=== PATIENT | male | born 1955 | race Caucasian/White ===

== ENCOUNTER 2016-10-19 13:55 | Emergency (ER) | payer OTHER ==
[~2016-10-19] VITALS: Ht 172.7 cm; Wt 76.1 kg
[~2016-10-19 13:55] MED LIST: ASPI81TA21 PO; CLTP PO; EPP3/2 IM; FISHOIL PO; FLUC100T PO; MULTTAB PO; SIMV20TA2 PO
[2016-10-19 14:07] VITALS: TEMP 36.8; Ht 172.7 cm; Wt 76.1 kg
--- NOTE | 2016-10-19 15:10 | DIAGNOSTIC IMAGING REPORT ---
LEFT FOOT MIN 3 VIEWS ROUTINE CLINICAL HISTORY: left foot pain pain COMPARISON: None. DISCUSSION: The bones and joint spaces appear intact. There is no evidence of fracture, dislocation or bony disease. There is no evidence for soft tissue swelling. IMPRESSION: Negative study. Electronically signed by: Les Zuluaga M.D. 10/19/2016 3:08 PM Dictated Date/Time: 10/19/2016 3:08 PM
[2016-10-19] MEDS ORDERED: BUPRTAB51 PO (15:19)
[2016-10-19] MEDS ORDERED: OMEGCAP2 PO (15:19)
[2016-10-19] MEDS ORDERED: BUPR-79 PO (15:19)
[2016-10-19] MEDS ORDERED: GABA-112 PO (15:19)
--- NOTE | 2016-10-19 15:50 | EMERGENCY ROOM VISIT NOTE ---
ED Visit Note First contact with patient: 14:10 CHIEF COMPLAINT: Foot pain HISTORY OF PRESENT ILLNESS: This 61-year-old male patient presents to the emergency department ambulatory complaining of swelling and pain in the left foot at rest and worse with weight bearing. The patient dropped a heavy piece of steel on his foot just prior to arrival. The patient rates the pain as sharp and 6/10. The patient has no relief of the pain. The patient is able to walk. No numbness or weakness. No ankle pain. There are no lacerations of the foot. The patient is able to move all of their toes and their ankle without pain. 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 He denies any numbness or tingling. He did take Advil and states that has helped. REVIEW OF SYSTEMS: GENERAL: A 10 system review of systems was completed with positives and pertinent negatives in the HPI. ALLERGIES: No known drug allergies MEDICATIONS: See nursing notes PMH: Hyperlipidemia SOCIAL HISTORY: The patient lives locally. He is a smoker. PHYSICAL EXAM: Vital Signs: Reviewed Nurse's notes, vital signs stable. GENERAL : This is a 61-year-old male, in no acute distress, but appears in pain, well- developed, well-nourished. MUSCULOSKELETAL: There is no visual deformity of the left foot. There is no erythema but mild ecchymosis. There is no warmth. There is tenderness and swelling over the dorsal aspect of the left foot. The range of motion of the left foot is minimally limited secondary to pain. There is no tenderness over the plantar fascia. Dorsi flexion 5/5 and Plantar flexion 5/5. The skin is intact and there are no lacerations or puncture wounds. Dorsalis pedis pulse 2+. Capillary refill less than 2 seconds. EMERGENCY DEPARTMENT COURSE: I examined the patient. An X-ray of the left foot was reviewed by myself and radiology and reveals no fracture or dislocation. The patient was placed in a post-op shoe and declined crutches. The patient sustained a crush injury to left foot. He does not have any numbness, weakness , coolness to suggest compartment syndrome. The patient was advised of the possibility of soft tissue injury. He should follow-up with orthopedics for further evaluation and management. He did not have any identifiable enlargement of the reported soft tissue tumor in his foot. There is no abnormality on x-ray. He should return with any worsening symptoms. LEFT FOOT MIN 3 VIEWS ROUTINE CLINICAL HISTORY: left foot pain pain COMPARISON: None. DISCUSSION: The bones and joint spaces appear intact. There is no evidence of fracture, dislocation or bony disease. There is no evidence for soft tissue swelling. IMPRESSION: Negative study. Problem List Medical Problems: (1) Hornet/Wasp/Bee Sting Status: Resolved (2) Tobacco Use Disorder Status: Chronic Current/Historical Medications Scheduled Aspirin Enteric Coated (Ecotrin Or Generic), 81 MG PO DAILY Bupropion (Wellbutrin Sr), 150 MG PO DAILY Epinephrine (Epipen), 0.3 MG IM UD Gabapentin (Neurontin), 100 MG PO TID Multivitamins/Minerals (Mvi With Minerals), 1 TABLET PO DAILY [place]-3 Fatty Acids (Fish Oil), 1 CAP PO DAILY Simvastatin (Zocor), 20 MG PO DAILY Miscellaneous Medications Bupropion (Wellbutrin-Xl), 300 MG PO Allergies Coded Allergies: BEE STING (Verified Allergy, Severe, SHORTNESS OF BREATH, 10/19/16) HAS EPIPEN FOR REACTIONS Vital Signs Date Time Temp Pulse Resp B/P Pulse Ox O2 Delivery O2 Flow Rate FiO2 10/19/16 16:45 81 18 126/82 94 Room Air 10/19/16 14:07 36.8 91 18 127/81 96 Room Air Departure Information Impression Primary Impression: Contusion of foot Dispostion Home / Self-Care Condition GOOD Referrals Nellie Zhang M.D. (PCP) Jeffery Huber M.D. Patient Instructions ED Crush Injury, Foot/Toe, No Fracture, My [facility] Additional Instructions Ibuprofen 600 mg every 6-8 hours for pain Wear the postop shoe when up and about Contact orthopedics tomorrow to schedule a follow-up appointment for further evaluation and management Return with any severe, worsening pain, numbness, tingling, coolness, weakness
[2016-10-19 16:45] VITALS: BP 126/82; PULSE 81; O2SAT 94
[2016-12-16] MEDS ORDERED: CPR500 PO (10:24)
[2016-12-16] MEDS ORDERED: LCTX PO (10:24)
== END 2016-10-19 16:46 | disposition home or self-care (01) ==
LOC: C.EDB 13:57 → C.EDD 16:46
DX: S90.32XA Contusion of left foot, initial encounter (principal); M79.672 Pain in left foot; W20.8XXA Other cause of strike by thrown, projected or falling object, initial encounter; Y92.89 Other specified places as the place of occurrence of the external cause; F17.210 Nicotine dependence, cigarettes, uncomplicated

== ENCOUNTER 2016-11-22 16:20 | Emergency (ER) | payer OTHER ==
[~2016-11-22] VITALS: Ht 172.7 cm; Wt 77.5 kg
[~2016-11-22 16:20] MED LIST changes: +BUPR-79 PO; +BUPRTAB51 PO; -CLTP PO; -FISHOIL PO; -FLUC100T PO; +GABA-112 PO; +OMEGCAP2 PO
[2016-11-22 16:24] VITALS: TEMP 36.9; Ht 172.7 cm; Wt 77.5 kg
[2016-11-22 16:56] LABS: BASO % 0.2 %; BASO ABS # 0.02 K/uL (0-0.2); COMPLETE YES; EOS % 7.1 %; HEMATOCRIT 44.6 % (42-52); IG% 0.1 %; LYMPH % 27.8 %; LYMPH ABS # 2.83 K/uL (1.2-3.4); MEAN CELL VOLUME 97.2 fL (80-100); MEAN CORPUSCULAR HEMOGLOBIN 32.7 pg (25-34); MEAN CORPUSCULAR HGB CONC 33.6 g/dl (32-36); MEAN PLATELET VOLUME 10.4 fL (7.4-10.4); MONO % 4.5 %; NEUT % 60.3 %; PLATELET COUNT 198 K/uL (130-400); RED BLOOD COUNT 4.59 M/uL (4.7-6.1); WHITE BLOOD COUNT 10.18 K/uL (4.8-10.8)
[2016-11-22 16:57] LABS: URINE APPEARANCE CLEAR (CLEAR); URINE BILIRUBIN NEG (NEG); URINE COLOR YELLOW; URINE NITRITE NEG (NEG); URINE SPECIFIC GRAVITY 1.025 (1.000-1.030); UROBILINOGEN NEG (NEG); ZZUR CULT IF INDIC CLEAN CATCH NO
[2016-11-22] MEDS ORDERED: KETOROLAC TROMETHAMINE 30 MG/ML VIAL IV STA (17:06)
[2016-11-22 17:07] LABS: MANUAL MICROSCOPIC REQUIRED? NO; REVIEW REQ? NO
[2016-11-22 17:13] LABS: BUN/CREATININE RATIO 16.6 (10-20); CALCIUM 8.6 mg/dl (8.5-10.1); CREATININE 1.2 mg/dl (0.60-1.40)
[2016-11-22 17:16] LABS: ALB/GLOB RATIO 1.3 (0.9-2)
[2016-11-22] MEDS ORDERED: OMEP20CA9 PO (18:16)
[2016-11-22] MEDS ORDERED: ZCR40 PO (18:16)
--- NOTE | 2016-11-22 18:17 | DIAGNOSTIC IMAGING REPORT ---
CT SCAN OF THE ABDOMEN AND PELVIS WITHOUT CONTRAST CLINICAL HISTORY: Right-sided abdominal pain COMPARISON STUDY: No previous studies for comparison. TECHNIQUE: CT scan of the abdomen and pelvis was performed from the lung bases to the proximal femurs. Images are reviewed in the axial, sagittal, and coronal planes. IV contrast was not administered for this examination. CT DOSE: 788.88 mGy.cm FINDINGS: Lower chest: There are bibasal atelectatic changes. Liver: The unenhanced liver is normal in size, contour, and attenuation. There is no intrahepatic biliary ductal dilatation. Gallbladder: Unremarkable. Spleen: Normal in size and attenuation. Pancreas: Unremarkable. Adrenal glands: Unremarkable. Kidneys: No renal, ureteral, or bladder calculi are visualized. Bowel: There are no transition zones indicate bowel obstruction. The appendix appears normal. There is colonic diverticulosis. There are no acute peridiverticular inflammatory changes. Peritoneum: There is no intraperitoneal free air or abdominal ascites. Vasculature: The abdominal aorta is normal in course and caliber. Adenopathy: None. Pelvic viscera: The prostate is enlarged measuring 48 mm transversely. Skeletal structures: No destructive osseous lesions are seen. IMPRESSION: 1. No evidence of bowel obstruction. No evidence of free air 2. No renal, ureteral, or bladder calculi identified 3. Normal appendix 4. Diverticulosis. No evidence of acute diverticulitis. Electronically signed by: Sarwat Liang M.D. 11/22/2016 6:15 PM Dictated Date/Time: 11/22/2016 6:13 PM
--- NOTE | 2016-11-22 18:43 | EMERGENCY ROOM VISIT NOTE ---
History Report prepared by Marcelino: Abhishek May Under the Supervision of: Dr. Mookie Almanza D.O. First contact with patient: 16:59 Chief Complaint: ABDOMINAL PAIN Stated Complaint: SEVERE ABDOMINAL PAIN- RT SIDE Nursing Triage Summary: right sided abd pain that gets worse with movement such as couging and sneezing , no n/v/d no flank pain no urinary complaints History of Present Illness The patient is a 61 year old male who presents to the Emergency Room with complaints of waxing and waning right lower quadrant abdominal pain beginning two days prior to arrival. He currently rates his discomfort as a 3/10 in severity. The patient states his pain worsens with bending over, sneezing, and coughing. As per , the patient has been coughing recently. He denies previous abdominal surgeries but notes a history of a hernia. The patient denies constipation, bloody or black stool, and urinary symptoms. Source of History: patient Onset: two days SWITCHMAN Position: abdomen (RLQ) Symptom Intensity: 3/10 Timing: waxes/wanes Modifying Factors (Worsening): other (bending over, coughing, sneezing) Associated Symptoms: + abdominal pain, + cough, No hematochezia, No melena, No urinary symptoms Review of Systems See HPI for pertinent positives & negatives. A total of 10 systems reviewed and were otherwise negative. Past Medical & Surgical Medical Problems: (1) Brain tumor (2) Hernia (3) Hornet/Wasp/Bee Sting (4) Tobacco Use Disorder Surgical Problems: (1) S/P vasectomy Family History Cancer Diabetes mellitus Heart disease Hypertension Social History Smoking Status: Current Every Day Smoker Alcohol Use: none Drug Use: none Marital Status: Housing Status: lives with family Occupation Status: employed Current/Historical Medications Scheduled Aspirin Enteric Coated (Ecotrin Or Generic), 81 MG PO DAILY Bupropion (Wellbutrin Sr), 150 MG PO DAILY Epinephrine (Epipen), 0.3 MG IM UD Gabapentin (Neurontin), 100 MG PO TID Multivitamins/Minerals (Mvi With Minerals), 1 TABLET PO DAILY [place]-3 Fatty Acids (Fish Oil), 1 CAP PO DAILY Omeprazole (Prilosec), 20 MG PO DAILY Simvastatin (Simvastatin), 40 MG PO HS Miscellaneous Medications Bupropion (Wellbutrin-Xl), 300 MG PO Allergies Coded Allergies: BEE STING (Verified Allergy, Severe, SHORTNESS OF BREATH, 10/19/16) HAS EPIPEN FOR REACTIONS Physical Exam Vital Signs Date Time Temp Pulse Resp B/P Pulse Ox O2 Delivery O2 Flow Rate FiO2 11/22/16 18:25 79 20 144/76 96 Room Air 11/22/16 16:24 36.9 84 18 141/87 96 Room Air Physical Exam CONSTITUTIONAL/VITAL SIGNS: Reviewed / noted above. GENERAL: Non-toxic in appearance. INTEGUMENTARY: Warm, dry, and [place]. HEAD: Normocephalic. EYES: without scleral icterus or trauma. ENT/OROPHARYNX: clear and moist. LYMPHADENOPATHY/NECK: Is supple without lymphadenopathy or meningismus. RESPIRATORY: Lungs clear and equal. CARDIOVASCULAR: Regular rate and rhythm. GI/ABDOMEN: Point tenderness on the lateral abdomen in the vicinity of the tip of the 12th rib. Soft. No organomegaly or pulsatile mass. No rebound or guarding. Normal bowel sounds. EXTREMITIES: Warm and well perfused. BACK: No CVA tenderness. NEUROLOGICAL: Intact without focal deficits. PSYCHIATRIC: normal affect. MUSCULOSKELETAL: Normally developed with good muscle tone. Medical Decision & Procedures ER Provider Diagnostic Interpretation: CT results as stated below per my review and radiologist interpretation: CT SCAN OF THE ABDOMEN AND PELVIS WITHOUT CONTRAST CLINICAL HISTORY: Right-sided abdominal pain COMPARISON STUDY: No previous studies for comparison. TECHNIQUE: CT scan of the abdomen and pelvis was performed from the lung bases to the proximal femurs. Images are reviewed in the axial, sagittal, and coronal planes. IV contrast was not administered for this examination. CT DOSE: 788.88 mGy.cm FINDINGS: Lower chest: There are bibasal atelectatic changes. Liver: The unenhanced liver is normal in size, contour, and attenuation. There is no intrahepatic biliary ductal dilatation. Gallbladder: Unremarkable. Spleen: Normal in size and attenuation. Pancreas: Unremarkable. Adrenal glands: Unremarkable. Kidneys: No renal, ureteral, or bladder calculi are visualized. Bowel: There are no transition zones indicate bowel obstruction. The appendix appears normal. There is colonic diverticulosis. There are no acute peridiverticular inflammatory changes. Peritoneum: There is no intraperitoneal free air or abdominal ascites. Vasculature: The abdominal aorta is normal in course and caliber. Adenopathy: None. Pelvic viscera: The prostate is enlarged measuring 48 mm transversely. Skeletal structures: No destructive osseous lesions are seen. IMPRESSION: 1. No evidence of bowel obstruction. No evidence of free air 2. No renal, ureteral, or bladder calculi identified 3. Normal appendix 4. Diverticulosis. No evidence of acute diverticulitis. Electronically signed by: Sarwat Liang M.D. 11/22/2016 6:15 PM Laboratory Results 11/22/16 16:42 Red Blood Count 4.59, Mean Corpuscular Volume 97.2, Mean Corpuscular Hemoglobin 32.7, Mean Corpuscular Hemoglobin Concent 33.6, Mean Platelet Volume 10.4, Neutrophils (%) (Auto) 60.3, Lymphocytes (%) (Auto) 27.8, Monocytes (%) (Auto) 4.5, Eosinophils (%) (Auto) 7.1, Basophils (%) (Auto) 0.2, Neutrophils # (Auto) 6.14, Lymphocytes # (Auto) 2.83, Monocytes # (Auto) 0.46, Eosinophils # (Auto) 0.72, Basophils # (Auto) 0.02 11/22/16 16:42 Test 11/22/16 16:42 White Blood Count 10.18 K/uL (4.8-10.8) Red Blood Count 4.59 M/uL (4.7-6.1) Hemoglobin 15.0 g/dL (14.0-18.0) Hematocrit 44.6 % (42-52) Mean Corpuscular Volume 97.2 fL (80-100) Mean Corpuscular Hemoglobin 32.7 pg (25-34) Mean Corpuscular Hemoglobin Concent 33.6 g/dl (32-36) Platelet Count 198 K/uL (130-400) Mean Platelet Volume 10.4 fL (7.4-10.4) Neutrophils (%) (Auto) 60.3 % Lymphocytes (%) (Auto) 27.8 % Monocytes (%) (Auto) 4.5 % Eosinophils (%) (Auto) 7.1 % Basophils (%) (Auto) 0.2 % Neutrophils # (Auto) 6.14 K/uL (1.4-6.5) Lymphocytes # (Auto) 2.83 K/uL (1.2-3.4) Monocytes # (Auto) 0.46 K/uL (0.11-0.59) Eosinophils # (Auto) 0.72 K/uL (0-0.5) Basophils # (Auto) 0.02 K/uL (0-0.2) RDW Standard Deviation 46.3 fL (36.4-46.3) RDW Coefficient of Variation 13.1 % (11.5-14.5) Immature Granulocyte % (Auto) 0.1 % Immature Granulocyte # (Auto) 0.01 K/uL (0.00-0.02) Urine Color YELLOW Urine Appearance CLEAR (CLEAR) Urine pH 5.0 (4.5-7.5) Urine Specific [place] 1.025 (1.000-1.030) Urine Protein NEG (NEG) Urine Glucose (UA) NEG (NEG) Urine Ketones TRACE (NEG) Urine Occult Blood NEG (NEG) Urine Nitrite NEG (NEG) Urine Bilirubin NEG (NEG) Urine Urobilinogen NEG (NEG) Urine Leukocyte Esterase NEG (NEG) Anion Gap 7.0 mmol/L (3-11) Est Creatinine Clear Calc Drug Dose 60.9 ml/min Estimated GFR () 74.1 Estimated GFR (Non- 64.0 BUN/Creatinine Ratio 16.6 (10-20) Calcium Level 8.6 mg/dl (8.5-10.1) Total Bilirubin 0.3 mg/dl (0.2-1) Aspartate Amino Transf (AST/SGOT) 18 U/L (15-37) Alanine Aminotransferase (ALT/SGPT) 42 U/L (12-78) Alkaline Phosphatase 92 U/L (45-117) Total Protein 7.2 gm/dl (6.4-8.2) Albumin 4.0 gm/dl (3.4-5.0) Globulin 3.2 gm/dl (2.5-4.0) Albumin/Globulin Ratio 1.3 (0.9-2) Lipase 157 U/L (73-393) Laboratory results as stated above per my review. Medications Administered Medications (Trade) Dose Ordered Sig/Rosaura Route Start Time Stop Time Status Last Admin Dose Admin Ketorolac Tromethamine (Toradol Inj) 30 mg NOW STAT IV 11/22/16 17:06 11/22/16 17:07 DC 11/22/16 17:19 30 MG ED Course 1700: Previous medical records were reviewed. The patient was evaluated in room C7. A complete history and physical examination was performed. 1706: Ordered Toradol Inj 30 mg IV. 1844: On reevaluation, the patient is doing well. I discussed the results and findings with the patient. He verbalized agreement of the treatment plan. The patient was discharged home. Medical Decision Differential considered: pancreatitis, hepatitis, or acute cholecystitis, AAA, UTI, pyelonephritis, kidney stones, appendicitis, diverticulitis, shingles, bowel obstruction mesenteric ischemia, intussusception,hernia, testicular torsion. This is a 61-year-old male who presents to the ED with a chief complaint of right lower quadrant/flank abdominal pain he has had it for a couple of days. It seems to be more musculoskeletal, he reports. He does not recall any specific injury or doing any sort of activity that will cause musculoskeletal pain. His pain is worse with movement, sneezing and cough. On exam his pain localizes to the area just over the distal 12th rib. The patient states that at times he does not notice the pain. His vital signs are normal. CBC, complete metabolic panel and urine did not reveal any significant abnormalities. CT scan of the abdomen and pelvis without contrast did not show any abnormalities. The patient was told the results. His symptoms are felt to be muscular skeletal. He is felt to be stable for discharge. Impression Primary Impression: Right lateral abdominal pain Scribe Attestation The scribe's documentation has been prepared under my direction and personally reviewed by me in its entirety. I confirm that the note above accurately reflects all work, treatment, procedures, and medical decision making performed by me. Departure Information Dispostion Home / Self-Care Referrals Nellie Zhang M.D. (PCP) Forms HOME CARE DOCUMENTATION FORM, IMPORTANT VISIT INFORMATION Patient Instructions My [facility] Additional Instructions Symptoms appear to be musculoskeletal. Take Tylenol/Motrin as needed for pain. Anticipate improvement over the next 5-7 days. Return for significant worsening or follow-up with your family doctor for persistence of symptoms.
[2016-11-22 19:06] VITALS: BP 144/76; PULSE 88; O2SAT 99
[2016-12-16] MEDS ORDERED: LCTX PO (10:24)
[2016-12-16] MEDS ORDERED: CPR500 PO (10:24)
== END 2016-11-22 19:07 | disposition home or self-care (01) ==
LOC: C.EDB 16:21 → C.EDC 19:07
DX: R10.31 Right lower quadrant pain (principal); F17.200 Nicotine dependence, unspecified, uncomplicated; Z85.841 Personal history of malignant neoplasm of brain; Z91.030 Bee allergy status; Z79.82 Long term (current) use of aspirin; Z80.9 Family history of malignant neoplasm, unspecified; Z83.3 Family history of diabetes mellitus; Z82.49 Family history of ischemic heart disease and other diseases of the circulatory system

== ENCOUNTER 2016-12-13 08:46 | Inpatient (IN) | payer OTHER ==
[~2016-12-13] VITALS: Ht 175.3 cm; Wt 75.4 kg
[~2016-12-13 08:46] MED LIST changes: +OMEP20CA9 PO; -SIMV20TA2 PO; +ZCR40 PO
[2016-12-13] MEDS ORDERED: ACETAMINOPHEN 500 MG TAB PO ONE ×2 (09:43→09:44)
[2016-12-13 09:56] LABS: HEMATOCRIT 42.4 % (42-52); MEAN CELL VOLUME 96.6 fL (80-100); MEAN CORPUSCULAR HEMOGLOBIN 32.3 pg (25-34); MEAN CORPUSCULAR HGB CONC 33.5 g/dl (32-36); MEAN PLATELET VOLUME 10.4 fL (7.4-10.4); PLATELET COUNT 198 K/uL (130-400); RED BLOOD COUNT 4.39 M/uL (4.7-6.1); WHITE BLOOD COUNT 14.76 K/uL (4.8-10.8)
[2016-12-13] MEDS ORDERED: KETOROLAC TROMETHAMINE 30 MG/ML VIAL IV STA (09:57)
[2016-12-13] MEDS ORDERED: ONDANSETRON INJ 2 MG/ML 2 ML VIAL IV STA (09:57)
[2016-12-13] MEDS ORDERED: SODIUM CHLORIDE 0.9% 1000ML 1,000 ML IV STA ×2 (09:57→11:08)
[2016-12-13] MEDS ORDERED: SODIUM CHLORIDE 0.9% 1000ML 1,000 ML IV ONE (09:57)
--- NOTE | 2016-12-13 10:00 | EMERGENCY ROOM VISIT NOTE ---
History Report prepared by Marcelino: Martin Lala Under the Supervision of: Dr. Castro Gomez M.D. First contact with patient: 09:49 Chief Complaint: VOMITING Stated Complaint: D,V, FEVER, WEAKNESS, STOMACH/CHEST PAINS Nursing Triage Summary: pt reports 3 days of NVD with LONGORIA fever chills, and 2 days of bilat rib pain to PCP today sent in for eval and tx History of Present Illness The patient is a 61 year old male who presents to the Emergency Room with complaints of intermittent vomiting that began 3 days ago. He states that he had two episodes of vomiting so far today. He is also experiencing nausea, diarrhea, abdominal pain, chest tightness, coughing, fever, and weakness. He states that he had 9 episodes of diarrhea today. He denies any abnormal urinary symptoms, melena, or hematochezia. He denies any recent travel or eating any unusual foods. He denies any sick contacts as well. He has a past medical history of a meningioma, hyperlipidemia, arthritis, and prostatitis. Source of History: patient, spouse/significant other Onset: 3 days ago Position: other (GI) Symptom Intensity: 3 episodes Quality: other (Emesis) Timing: intermittent Associated Symptoms: + abdominal pain, + chest pain, + cough, + diarrhea, + fevers, + headache, + nausea, No hematochezia, No melena, No urinary symptoms Review of Systems See HPI for pertinent positives & negatives. A total of 10 systems reviewed and were otherwise negative. Past Medical & Surgical Medical Problems: (1) Acute colitis (2) Brain tumor (3) Hernia (4) Hornet/Wasp/Bee Sting (5) Tobacco Use Disorder Surgical Problems: (1) S/P vasectomy Old medical records were reviewed. Nurse's notes were reviewed and I agree with. Family History Cancer Diabetes mellitus Heart disease Hypertension Social History Smoking Status: Current Every Day Smoker Alcohol Use: none Drug Use: none Marital Status: Housing Status: lives with family Occupation Status: employed Current/Historical Medications Scheduled Aspirin Enteric Coated (Ecotrin Or Generic), 81 MG PO DAILY Epinephrine (Epipen), 0.3 MG IM UD Gabapentin (Neurontin), 100 MG PO TID Multivitamins/Minerals (Mvi With Minerals), 1 TABLET PO DAILY [place]-3 Fatty Acids (Fish Oil), 1 CAP PO DAILY Omeprazole (Prilosec), 20 MG PO DAILY Simvastatin (Simvastatin), 40 MG PO HS Allergies Coded Allergies: BEE STING (Verified Allergy, Severe, SHORTNESS OF BREATH, 12/13/16) HAS EPIPEN FOR REACTIONS Physical Exam Vital Signs Date Time Temp Pulse Resp B/P Pulse Ox O2 Delivery O2 Flow Rate FiO2 12/13/16 12:32 84 18 92/52 93 Room Air 12/13/16 10:43 37.6 91 18 105/53 93 Room Air 12/13/16 08:51 39.2 116 24 124/71 96 Room Air Physical Exam General: Mildly ill appearing, but non-toxic middle aged male. Well developed well nourished in no acute distress, breathing comfortably on room air. Normal speech HEENT: Normal cephalic atraumatic. Pupils are equal round and reactive to light. Sclera anicteric. Extraocular movements are intact. Oropharynx is pink with moist mucous membranes. No swelling of the mouth lips or tongue. Neck: Supple with a midline trachea. No meningeal signs or stiffness, no JVD or bruits. No Stridor. Negative Kernig's and Brudzinski's signs. Chest: Clear to auscultation bilaterally. No wheezes or rhonchi. No increased work of breathing. Heart: regular rate and rhythm. Abdomen: Soft minimally diffusely tender, nondistended without rebound guarding or rigidity. Extremities: No cyanosis clubbing or edema. No calf tenderness or assymetry Spine/Back. Non tender to palpation. No CVA tenderness Skin: Good turgor without rashes. Neurologic exam: Cranial nerves two through 12 are intact. Motor and sensation are intact and symmetrical throughout. Medical Decision & Procedures ER Provider Diagnostic Interpretation: Radiology results as stated below per my review and radiologist interpretation: CHEST ONE VIEW PORTABLE CLINICAL HISTORY: Sepsis. Chest pain. COMPARISON STUDY: No previous studies for comparison. FINDINGS: Lung volumes are normal. There is no consolidation to suggest pneumonia. There is no evidence of pulmonary edema. No pneumothorax or pleural effusions present. Cardiomediastinal silhouette is unremarkable. IMPRESSION: No acute cardiopulmonary findings. Electronically signed by: Wilfredo Gonzalez M.D. 12/13/2016 10:08 AM Dictated Date/Time: 12/13/2016 10:[address] OF THE HEAD WITHOUT CONTRAST CLINICAL HISTORY: Weakness and fever. History of meningioma. COMPARISON STUDY: No previous studies for comparison. CT DOSE: 537.48 mGy.cm TECHNIQUE: Helical axial images of the head were obtained without IV contrast. Automated exposure control was utilized for the study. FINDINGS: No acute intracranial hemorrhage, midline shift or mass effect is present. There is a 1.5 x 1.4 cm heavily calcified mass centered on the anterior falx. Ventricular system is normal. Basilar cisterns are patent. There are no extra-axial collections. Suarez-white differentiation is maintained. There are no findings to suggest acute dural sinus thrombosis or acute territorial infarct. There are no significant calvarial abnormalities. Visualized portions of the sinuses and mastoid air cells are clear. IMPRESSION: 1. No acute intracranial findings. 2. 1.5 x 1.4 cm heavily calcified mass centered on the anterior falx which suggests a falcine meningioma. Electronically signed by: Wilfredo Gonzalez M.D. 12/13/2016 10:32 AM Dictated Date/Time: 12/13/2016 10:[address] OF THE ABDOMEN AND PELVIS WITHOUT CONTRAST CLINICAL HISTORY: Right lower quadrant pain, fever and leukocytosis. COMPARISON STUDY: CT of the abdomen and pelvis November 22, 2016. TECHNIQUE: Axial images of the abdomen and pelvis were obtained without IV contrast. Images were reviewed in the axial, sagittal, and coronal planes. FINDINGS: Evaluation of the abdomen and pelvis is suboptimal on this unenhanced exam. There is suspected fatty infiltration of the liver. The spleen, adrenal glands and pancreas are unremarkable. A few subcentimeter hyperdense left renal lesions are suboptimally assessed on this unenhanced exam but favor hyperdense cyst. There is no hydronephrosis. No renal, ureteral or bladder calculi are present. There is sigmoid diverticulosis without evidence for acute diverticulitis. There is mild infiltration adjacent to the ascending colon in the transverse colon. There is mild colonic wall thickening. No pneumatosis, free air or portal venous gas is present. The prostate is mildly enlarged. There are no suspicious skeletal lesions. The appendix is normal. There is no bowel obstruction. There is no lymphadenopathy. IMPRESSION: 1. Mild pericolonic infiltration adjacent to the ascending colon and transverse colon with mild colonic wall thickening. The findings reflect colitis, likely infectious in etiology. No abscess or free air. 2. Normal appendix. Electronically signed by: Wilfredo Gonzalez M.D. 12/13/2016 11:55 AM Dictated Date/Time: 12/13/2016 11:48 AM Laboratory Results 12/13/16 09:15 Red Blood Count 4.39, Mean Corpuscular Volume 96.6, Mean Corpuscular Hemoglobin 32.3, Mean Corpuscular Hemoglobin Concent 33.5, Mean Platelet Volume 10.4, Neutrophils (%) (Auto) 87.2, Lymphocytes (%) (Auto) 6.6, Monocytes (%) (Auto) 5.8, Eosinophils (%) (Auto) 0.1, Basophils (%) (Auto) 0.1, Neutrophils # (Auto) 12.88, Lymphocytes # (Auto) 0.97, Monocytes # (Auto) 0.86, Eosinophils # (Auto) 0.01, Basophils # (Auto) 0.01 12/13/16 09:15 Test 12/13/16 09:05 12/13/16 09:15 12/13/16 09:25 Urine Color DK YELLOW Urine Appearance CLEAR (CLEAR) Urine pH 5.5 (4.5-7.5) Urine Specific [place] 1.026 (1.000-1.030) Urine Protein 1+ (NEG) Urine Glucose (UA) NEG (NEG) Urine Ketones TRACE (NEG) Urine Occult Blood TRACE (NEG) Urine Nitrite NEG (NEG) Urine Bilirubin NEG (NEG) Urine Urobilinogen NEG (NEG) Urine Leukocyte Esterase NEG (NEG) Urine WBC (Auto) 1-5 /hpf (0-5) Urine RBC (Auto) 5-10 /hpf (0-4) Urine Hyaline Casts (Auto) 10-30 /lpf (0-5) Urine Epithelial Cells (Auto) 20-30 /lpf (0-5) Urine Bacteria (Auto) NEG (NEG) Urine Pathogenic Casts /lpf (0) Urine Mucus PRESENT (NONE PRSENT) White Blood Count 14.76 K/uL (4.8-10.8) Red Blood Count 4.39 M/uL (4.7-6.1) Hemoglobin 14.2 g/dL (14.0-18.0) Hematocrit 42.4 % (42-52) Mean Corpuscular Volume 96.6 fL (80-100) Mean Corpuscular Hemoglobin 32.3 pg (25-34) Mean Corpuscular Hemoglobin Concent 33.5 g/dl (32-36) Platelet Count 198 K/uL (130-400) Mean Platelet Volume 10.4 fL (7.4-10.4) Neutrophils (%) (Auto) 87.2 % Lymphocytes (%) (Auto) 6.6 % Monocytes (%) (Auto) 5.8 % Eosinophils (%) (Auto) 0.1 % Basophils (%) (Auto) 0.1 % Neutrophils # (Auto) 12.88 K/uL (1.4-6.5) Lymphocytes # (Auto) 0.97 K/uL (1.2-3.4) Monocytes # (Auto) 0.86 K/uL (0.11-0.59) Eosinophils # (Auto) 0.01 K/uL (0-0.5) Basophils # (Auto) 0.01 K/uL (0-0.2) RDW Standard Deviation 50.0 fL (36.4-46.3) RDW Coefficient of Variation 14.0 % (11.5-14.5) Immature Granulocyte % (Auto) 0.2 % Immature Granulocyte # (Auto) 0.03 K/uL (0.00-0.02) Prothrombin Time 10.9 SECONDS (9.0-12.0) Prothromb Time International Ratio 1.0 (0.9-1.1) Activated Partial Thromboplast Time 28.1 SECONDS (21.0-31.0) Partial Thromboplastin Ratio 1.1 Anion Gap 9.0 mmol/L (3-11) Est Creatinine Clear Calc Drug Dose 63.0 ml/min Estimated GFR () 74.1 Estimated GFR (Non- 64.0 BUN/Creatinine Ratio 10.9 (10-20) Calcium Level 8.2 mg/dl (8.5-10.1) Magnesium Level 2.0 mg/dl (1.8-2.4) Total Bilirubin 0.5 mg/dl (0.2-1) Aspartate Amino Transf (AST/SGOT) 21 U/L (15-37) Alanine Aminotransferase (ALT/SGPT) 32 U/L (12-78) Alkaline Phosphatase 87 U/L (45-117) Total Creatine Kinase 87 U/L (39-308) Creatine Kinase MB < 0.5 ng/ml (0.5-3.6) Creatine Kinase MB Ratio (0-3.0) Troponin I < 0.015 ng/ml (0-0.045) Total Protein 7.1 gm/dl (6.4-8.2) Albumin 3.7 gm/dl (3.4-5.0) Globulin 3.4 gm/dl (2.5-4.0) Albumin/Globulin Ratio 1.1 (0.9-2) Bedside Lactic Acid Venous 0.70 mmol/L (0.90-1.70) Laboratory studies as stated above per my review. Medications Administered Medications (Trade) Dose Ordered Sig/Rosaura Route Start Time Stop Time Status Last Admin Dose Admin Acetaminophen 1000 mg 1,000 mg STK-MED ONCE PO 12/13/16 09:43 12/13/16 09:44 DC 12/13/16 09:43 1,000 MG Sodium Chloride 1,000 ml @ 999 mls/hr Q1H1M STAT IV 12/13/16 09:57 12/13/16 10:57 DC 12/13/16 10:04 999 MLS/HR Sodium Chloride (Nss 1000ml) 1,000 ml @ 200 mls/hr Q5H ONCE IV 12/13/16 09:57 12/13/16 14:37 DC 12/13/16 10:49 200 MLS/HR Ondansetron HCl (Zofran Inj) 4 mg NOW STAT IV 12/13/16 09:57 12/13/16 09:59 DC 12/13/16 10:04 4 MG Ketorolac Tromethamine 30 mg 30 mg NOW STAT IV 12/13/16 09:57 12/13/16 09:59 DC 12/13/16 10:04 30 MG Sodium Chloride (Nss 1000ml) 1,000 ml @ 999 mls/hr Q1H1M STAT IV 12/13/16 11:08 12/13/16 12:08 DC 12/13/16 11:16 999 MLS/HR Piperacillin Sod/ Tazobactam Sod (Zosyn Iv) 4.5 gm NOW STAT IV 12/13/16 12:41 12/13/16 12:43 DC 12/13/16 12:47 4.5 GM ECG Indication: nausea, vomiting, weakness Rate (beats per minute): 105 Rhythm: sinus tachycardia Findings: no acute ischemic change, no ectopy Comparison ECG Date: 17 Aug 2002 Change: The rate has increased. ED Course 0949: Past medical records reviewed. The patient was evaluated in room C4, and a complete history and physical examination were performed. 0943: Ordered Tylenol Tab 1000 mg PO 0944: Ordered Tylenol Tab 500 mg PO 0957: Ordered Toradol Inj 30 mg IV, Zofran Inj 4 mg IV, Sodium Chloride 1000 ml @ 200 mls/hr IV, Sodium Chloride 1000 ml @ 999 mls/hr IV 1108: Ordered Sodium Chloride 1000 ml @ 999 mls/hr IV 1114: The patient is feeling better, however is still experiencing pain. 1241: Ordered Zosyn Iv 4.5 gm IV 1243: Upon reevaluation, the patient is resting. I discussed the results and treatment plan with the patient. He verbalized agreement of the treatment plan. The patient will be evaluated by Dr. Mikel Gardner, for further management. Medical Decision Differentials include dehydration, gastroenteritis, sepsis, pneumonia, meningitis, lyme disease, cardiac disease, and electrolyte or metabolic abnormality. Medication Reconciliation: I attest that I have personally reviewed the patient' s current medication list. Blood pressure Screening: Patient was found to have normal blood pressure on screening and does not require follow-up. This patient comes in as described above. He has a fever nausea vomiting diarrhea abdominal pain and body aches. IV access was established she was initially normotensive and mildly tachycardic and he was given a couple liters of IV normal saline and felt significantly better. His abdomen remains tender however mostly in the right lower quadrant. In light of this, I did do a CAT scan of his abdomen and he has a nonspecific colitis. He has a white count elevation of 14. His lactic acid is not significantly elevated. He was given Zosyn 4.5 g IV. he has no acute electrode or metabolic abdomen was. He has nothing to suggest a UTI. I do think he needs to be admitted for IV hydration further treatment and evaluation given his high temperature and SIRS/sepis criteria. I have consulted Dr. Morin, who saw the patient in ER, and will admit him for these measures. Consults Time Called: 1240 Consulting Physician: Dr. Mikel Gardner Returned Call: 1243 They will be evaluating the patient for further management and care. Impression Primary Impression: Acute colitis Additional Impressions: Nausea, vomiting, and diarrhea Dehydration Scribe Attestation The scribe's documentation has been prepared under my direction and personally reviewed by me in its entirety. I confirm that the note above accurately reflects all work, treatment, procedures, and medical decision making performed by me. Departure Information Dispostion Being Evaluated By Hospitalist Referrals Nellie Zhang M.D. (PCP) Patient Instructions My [facility] Problem Qualifiers
[2016-12-13 10:06] LABS: BUN/CREATININE RATIO 10.9 (10-20); CALCIUM 8.2 mg/dl (8.5-10.1); CREATININE 1.2 mg/dl (0.60-1.40); POTASSIUM 3.8 mmol/L (3.5-5.1)
[2016-12-13 10:08] LABS: ALB/GLOB RATIO 1.1 (0.9-2)
--- NOTE | 2016-12-13 10:09 | DIAGNOSTIC IMAGING REPORT ---
CHEST ONE VIEW PORTABLE CLINICAL HISTORY: Sepsis. Chest pain. COMPARISON STUDY: No previous studies for comparison. FINDINGS: Lung volumes are normal. There is no consolidation to suggest pneumonia. There is no evidence of pulmonary edema. No pneumothorax or pleural effusions present. Cardiomediastinal silhouette is unremarkable. IMPRESSION: No acute cardiopulmonary findings. Electronically signed by: Wilfredo Gonzalez M.D. 12/13/2016 10:08 AM Dictated Date/Time: 12/13/2016 10:07 AM
[2016-12-13 10:17] LABS: PARTIAL THROMBOPLASTIN RATIO 1.1; PROTHROMBIN TIME (PATIENT) 10.9 SECONDS (9.0-12.0)
[2016-12-13 10:29] LABS: URINE APPEARANCE CLEAR (CLEAR); URINE COLOR DK YELLOW; URINE EPITHELIAL CELL AUTO 20-30 /lpf (0-5); URINE NITRITE NEG (NEG); URINE PH 5.5 (4.5-7.5); URINE SPECIFIC GRAVITY 1.026 (1.000-1.030); UROBILINOGEN NEG (NEG); ZZUR CULT IF INDIC CLEAN CATCH NO
[2016-12-13 10:33] LABS: BASO % 0.1 %; BASO ABS # 0.01 K/uL (0-0.2); COMPLETE YES; EOS % 0.1 %; IG% 0.2 %; LYMPH % 6.6 %; LYMPH ABS # 0.97 K/uL (1.2-3.4); MONO % 5.8 %; NEUT % 87.2 %
--- NOTE | 2016-12-13 10:34 | DIAGNOSTIC IMAGING REPORT ---
CT OF THE HEAD WITHOUT CONTRAST CLINICAL HISTORY: Weakness and fever. History of meningioma. COMPARISON STUDY: No previous studies for comparison. CT DOSE: 537.48 mGy.cm TECHNIQUE: Helical axial images of the head were obtained without IV contrast. Automated exposure control was utilized for the study. FINDINGS: No acute intracranial hemorrhage, midline shift or mass effect is present. There is a 1.5 x 1.4 cm heavily calcified mass centered on the anterior falx. Ventricular system is normal. Basilar cisterns are patent. There are no extra-axial collections. Suarez-white differentiation is maintained. There are no findings to suggest acute dural sinus thrombosis or acute territorial infarct. There are no significant calvarial abnormalities. Visualized portions of the sinuses and mastoid air cells are clear. IMPRESSION: 1. No acute intracranial findings. 2. 1.5 x 1.4 cm heavily calcified mass centered on the anterior falx which suggests a falcine meningioma. Electronically signed by: Wilfredo Gonzalez M.D. 12/13/2016 10:32 AM Dictated Date/Time: 12/13/2016 10:30 AM
[2016-12-13 10:53] LABS: MANUAL MICROSCOPIC REQUIRED? NO; REVIEW REQ? YES; URINE BILIRUBIN NEG (NEG)
[2016-12-13 10:55] LABS: URINE MUCUS PRESENT (NONE PRSENT)
--- NOTE | 2016-12-13 11:56 | DIAGNOSTIC IMAGING REPORT ---
CT OF THE ABDOMEN AND PELVIS WITHOUT CONTRAST CLINICAL HISTORY: Right lower quadrant pain, fever and leukocytosis. COMPARISON STUDY: CT of the abdomen and pelvis November 22, 2016. TECHNIQUE: Axial images of the abdomen and pelvis were obtained without IV contrast. Images were reviewed in the axial, sagittal, and coronal planes. FINDINGS: Evaluation of the abdomen and pelvis is suboptimal on this unenhanced exam. There is suspected fatty infiltration of the liver. The spleen, adrenal glands and pancreas are unremarkable. A few subcentimeter hyperdense left renal lesions are suboptimally assessed on this unenhanced exam but favor hyperdense cyst. There is no hydronephrosis. No renal, ureteral or bladder calculi are present. There is sigmoid diverticulosis without evidence for acute diverticulitis. There is mild infiltration adjacent to the ascending colon in the transverse colon. There is mild colonic wall thickening. No pneumatosis, free air or portal venous gas is present. The prostate is mildly enlarged. There are no suspicious skeletal lesions. The appendix is normal. There is no bowel obstruction. There is no lymphadenopathy. IMPRESSION: 1. Mild pericolonic infiltration adjacent to the ascending colon and transverse colon with mild colonic wall thickening. The findings reflect colitis, likely infectious in etiology. No abscess or free air. 2. Normal appendix. Electronically signed by: Wilfredo Gonzalez M.D. 12/13/2016 11:55 AM Dictated Date/Time: 12/13/2016 11:48 AM
[2016-12-13] MEDS ORDERED: PIPERACILLIN/TAZOBACTAM 4.5 GM/100ML D5W IV STA (12:41)
[2016-12-13] MEDS ORDERED: ACETAMINOPHEN 325 MG TAB PO PRN (13:15)
[2016-12-13] MEDS ORDERED: ONDANSETRON INJ 2 MG/ML 2 ML VIAL IV PRN (13:15)
[2016-12-13 13:25] VITALS: BP 97/60; PULSE 79; TEMP 36.7; O2SAT 93; Ht 175.3 cm; Wt 75.4 kg
[2016-12-13 14:15] VITALS: BP 97/60; PULSE 79; TEMP 36.7; O2SAT 94
--- NOTE | 2016-12-13 14:20 | HISTORY & PHYSICAL EXAMINATION ---
DATE OF ADMISSION: 12/13/2016 PRIMARY CARE PHYSICIAN: Dr. Nellie Zhang. CHIEF COMPLAINT: Nausea, vomiting, abdominal pain and fever since Wednesday last. HISTORY OF PRESENT COMPLAINT: He is a 61-year-old male with significant past medical history of esophageal reflux, tobacco use/disorder, hyperlipidemia and also history of meningioma. Apparently, has been complaining of right lower quadrant pain associated with nausea, vomiting, diarrhea and fever and chills since Wednesday last. Started to have generalized weakness, followed by fever and chills and diarrhea about 10-12 times a day. He has had abdominal pain with nausea and vomiting, quite a few times of vomiting as well. He is feeling weak and tired. He came to the ER with these symptoms and is noted to have a white count of 14.76 and a CAT scan of the abdomen did show ascending and transverse colitis. From that point, he was admitted to medical floor for continuation of care. PAST MEDICAL HISTORY: Significant for esophageal reflux, tobacco use/disorder, hyperlipidemia, meningioma and generalized anxiety disorder and benign prostatic hypertrophy. PAST SURGICAL HISTORY: Neck cyst removal, removal of tonsil as a child, inguinal hernia repair in 2011 and vasectomy. FAMILY HISTORY: Significant in brother, brother had unknown cancer. Maternal grandmother had diabetes. Mother has diabetes. Father has heart disease and also CHF. SOCIAL HISTORY: He is . He smokes about 7 cigars per day. He uses alcohol occasionally and he has been reasonably active. ALLERGIES: BEE STING. MEDICATIONS: He has been on EpiPen as an outpatient, simvastatin 40 mg at night, omega-3 fish oil 1 capsule daily, aspirin 81 mg a day, gabapentin 100 mg t.i.d., multivitamin 1 tablet daily, omeprazole 20 mg daily. REVIEW OF SYSTEMS: Other system review was unremarkable except mentioned in history of present complaint. NEUROLOGICAL: He does not have any numbness or tingling in the extremities. He does have headache, but no blurred vision, no speech problem. CARDIOVASCULAR: No chest pain, palpitations. No shortness of breath. RESPIRATORY: No cough or phlegm and no shortness of breath. GASTROINTESTINAL: Has abdominal pain, nausea, vomiting, and diarrhea. GENITOURINARY: No problem with urine. MUSCULOSKELETAL: No acute arthritis in any joint. GENERAL: He denies to have any rash and/or enlargement of lymph nodes. PHYSICAL EXAMINATION: GENERAL: On examination in the Emergency Room, he was not having any acute distress. VITAL SIGNS: Temperature 39.2, pulse is 84, blood pressure 124/71 and went down to 92/52, saturation 93% on room air. HEENT: Unremarkable. NECK: Supple. No JVD, no bruit. CHEST: Clear to auscultation bilaterally. HEART: S1, S2 regular. ABDOMEN: Soft, benign, tender in the right lower quadrant. No guarding or rigidity. Bowel sounds are accelerated. RECTAL: Deferred. EXTREMITIES: Negative. CENTRAL NERVOUS SYSTEM: Alert, awake, oriented x3. LABORATORY DATA: Noted today white count 14.76, H\T\H 14.2/42.4, platelet was 198. Sodium 139, potassium 3.8, chloride 106, carbon dioxide 24, BUN 13, creatinine 1.20. Random glucose 113. Lactic acid is 0.70. LFTs normal. Troponin normal. Coagulation panel is unremarkable. UA examination unremarkable. Chest x-ray, no acute cardiopulmonary findings. CT of the head, no acute intracranial findings, 1.5 x 1.4 cm heavily calcified mass centered into the anterior falx suggest falcine meningioma. CT of the abdomen and pelvis reported as mild pericolonic infiltration adjacent to the ascending colon and transverse colon with mild colonic wall thickening, finding reflux colitis, likely infectious in etiology. EKG was in sinus rhythm, rate of 105 per minute, normal axis and minor nonspecific ST-T wave changes. IMPRESSION AND PLAN: 1. Nonspecific colitis could be infection. The patient will be admitted to medical floor. He will be given IV fluid and antibiotic, a stool for Clostridium difficile toxin and cultures will be tested and he will be given symptomatic medications. Clear liquid to start with and advance diet as tolerated. 2. Esophageal reflux. Continue with proton pump inhibitors. 3. Hyperlipidemia. Hold his cholesterol medications for now. 4. Generalized anxiety disorder. Does not take any medications for that. We may give occasional diazepam if needed. 5. Deep venous thrombosis prophylaxis with Lovenox. 6. Code status. He will be full code. In my clinical judgment, the beneficiary meets criteria as per CMS for 2 midnight stay in the hospital. CLAUDE
[2016-12-13 15:14] VITALS: BP 106/67; PULSE 83; TEMP 37; O2SAT 92
[2016-12-13] MEDS: GABAPENTIN 100 MG CAP PO SCH ×2 (15:18→20:18)
[2016-12-13] MEDS: NSS + 20MEQ KCL 1000ML 1,000 ML IV SCH ×2 (15:18→23:18)
[2016-12-13] MEDS: METRONIDAZOLE / NSS 500 MG in PREMIXED NSS 100 ML IV SCH ×2 (15:25→23:19)
[2016-12-13 16:00] VITALS: O2SAT 92
[2016-12-13] MEDS: KETOROLAC TROMETHAMINE 15 MG/ML VIAL IV PRN (16:34)
[2016-12-13] MEDS: CIPROFLOXACIN / D5W 400 MG in PREMIXED IN D5W 200 ML IV SCH (18:13)
[2016-12-13] MEDS ORDERED: NURSING VERBAL MED ORDER ONE (18:30)
[2016-12-13 19:11] VITALS: BP 101/66; PULSE 79; TEMP 36.8; O2SAT 91
[2016-12-13] MEDS: HYDROmorphone INJ 1 MG/ML SYR IV PRN (20:18)
[2016-12-13] MEDS: ENOXAPARIN 40 MG/0.4 ML SYR SQ SCH (20:20)
[2016-12-13 23:04] VITALS: BP 106/72; PULSE 90; TEMP 38.2; O2SAT 92
[2016-12-14 04:00] VITALS: BP 110/74; PULSE 86; TEMP 37; O2SAT 94
[2016-12-14 05:49] LABS: HEMATOCRIT 37.1 % (42-52); MEAN CELL VOLUME 97.4 fL (80-100); MEAN CORPUSCULAR HEMOGLOBIN 31.8 pg (25-34); MEAN CORPUSCULAR HGB CONC 32.6 g/dl (32-36); MEAN PLATELET VOLUME 9.4 fL (7.4-10.4); PLATELET COUNT 146 K/uL (130-400); RED BLOOD COUNT 3.81 M/uL (4.7-6.1); WHITE BLOOD COUNT 6.53 K/uL (4.8-10.8)
[2016-12-14 06:16] LABS: BUN/CREATININE RATIO 10.3 (10-20); CALCIUM 7.1 mg/dl (8.5-10.1); CREATININE 0.97 mg/dl (0.60-1.40); POTASSIUM 3.8 mmol/L (3.5-5.1)
[2016-12-14] MEDS: CIPROFLOXACIN / D5W 400 MG in PREMIXED IN D5W 200 ML IV SCH (06:20)
[2016-12-14] MEDS: NSS + 20MEQ KCL 1000ML 1,000 ML IV SCH ×3 (06:25→22:47)
[2016-12-14] MEDS: KETOROLAC TROMETHAMINE 15 MG/ML VIAL IV PRN (06:25)
[2016-12-14 07:20] VITALS: BP 106/69; PULSE 81; TEMP 37.4; O2SAT 92
[2016-12-14 08:00] VITALS: O2SAT 94
[2016-12-14] MEDS: METRONIDAZOLE / NSS 500 MG in PREMIXED NSS 100 ML IV SCH ×3 (08:27→23:58)
[2016-12-14] MEDS: ASPIRIN 81 MG ECTAB PO SCH (08:29)
[2016-12-14] MEDS: GABAPENTIN 100 MG CAP PO SCH ×3 (08:32→21:07)
[2016-12-14] MEDS: CEROVITE ADV FORMULA TAB PO SCH (08:32)
[2016-12-14] MEDS: PANTOprazole SOD 40 MG TAB PO SCH (08:32)
[2016-12-14] MEDS ORDERED: CIPROFLOXACIN 500 MG TAB PO ONE (10:00)
[2016-12-14] MEDS: HYDROmorphone INJ 1 MG/ML SYR IV PRN (11:44)
--- NOTE | 2016-12-14 11:50 | Progress Note ---
Internal Med Progress Note Date of Service: December 14, 2016. Provider Documentation: SUBJECTIVE: The patient was seen and examined Still has profuse diarrhea and abdominal pain No Nausea and or vomiting OBJECTIVE: Vital Signs-as noted below Exam: General-Minimal distress at rest Eyes-Normal ENT-normal Neck-supple Lungs-Clear to auscultate bilaterally Heart-Regular Abdomen-Benign,tender lower quadrants ,no masses,bowel sound exaggerated Extremities-No edema Neuro-AAOx3 Lab data as noted below. ASSESSMENT & PLAN: Infective Colitis Likely secondary to [place] Clostridium difficile toxin -negative Receiving IV Cipro and Flagyl Changed to Oral Cipro 750 mg BID and continued IV Flagyl for now Not yet any better Continue IVF and symptomatic treatment Esophageal reflux. Continue with proton pump inhibitors. Hyperlipidemia. Hold his cholesterol medications for now. Generalized anxiety disorder. Does not take any medications for that. We may give occasional benzodiazepines if needed. Deep venous thrombosis prophylaxis with Lovenox. Code status. He will be full code. Vital Signs: Date Time Temp Pulse Resp B/P Pulse Ox O2 Delivery O2 Flow Rate FiO2 12/14/16 08:00 94 Room Air 12/14/16 07:20 37.4 81 18 106/69 92 Room Air 12/14/16 04:00 37.0 86 20 110/74 94 12/14/16 00:00 Room Air 12/13/16 23:04 38.2 90 18 106/72 92 Room Air 12/13/16 20:00 Room Air 12/13/16 19:11 36.8 79 20 101/66 91 Room Air 12/13/16 16:00 92 Room Air 12/13/16 15:14 37.0 83 18 106/67 92 Room Air 12/13/16 14:15 36.7 79 16 97/60 94 Room Air 12/13/16 13:56 77 16 93/56 99 Room Air 12/13/16 13:25 36.7 79 16 97/60 93 Room Air 12/13/16 12:32 84 18 92/52 93 Room Air Lab Results: Results Past 24 Hours Test 12/14/16 05:36 Range/Units White Blood Count 6.53 4.8-10.8 K/uL Red Blood Count 3.81 4.7-6.1 M/uL Hemoglobin 12.1 14.0-18.0 g/dL Hematocrit 37.1 42-52 % Mean Corpuscular Volume 97.4 80-100 fL Mean Corpuscular Hemoglobin 31.8 25-34 pg Mean Corpuscular Hemoglobin Concent 32.6 32-36 g/dl RDW Standard Deviation 50.7 36.4-46.3 fL RDW Coefficient of Variation 14.1 11.5-14.5 % Platelet Count 146 130-400 K/uL Mean Platelet Volume 9.4 7.4-10.4 fL Sodium Level 143 136-145 mmol/L Potassium Level 3.8 3.5-5.1 mmol/L Chloride Level 112 98-107 mmol/L Carbon Dioxide Level 23 21-32 mmol/L Anion Gap 8.0 3-11 mmol/L Blood Urea Nitrogen 10 7-18 mg/dl Creatinine 0.97 0.60-1.40 mg/dl Est Creatinine Clear Calc Drug Dose 78.0 ml/min Estimated GFR () 95.9 Estimated GFR (Non- 82.7 BUN/Creatinine Ratio 10.3 10-20 Random Glucose 84 70-99 mg/dl Calcium Level 7.1 8.5-10.1 mg/dl Magnesium Level 2.0 1.8-2.4 mg/dl Microbiology Results 12/13/16 C.difficile Toxin B Gene (PCR) - Final, Complete No C. difficile toxin B gene detected 12/13/16 Shiga Toxin Test - Preliminary, Resulted No E. Coli shiga toxin 1 or shiga tox... 12/13/16 Stool Culture - Preliminary, Resulted NO SALMONELLA ISOLATED TO DATE,...
[2016-12-14 14:52] VITALS: BP 104/71; PULSE 68; TEMP 37.2; O2SAT 95
[2016-12-14 16:00] VITALS: O2SAT 95
[2016-12-14] MEDS: CIPROFLOXACIN 500 MG TAB PO SCH (21:06)
[2016-12-14] MEDS: ENOXAPARIN 40 MG/0.4 ML SYR SQ SCH (21:08)
[2016-12-15 00:03] VITALS: BP 117/72; PULSE 79; TEMP 36.8; O2SAT 96
[2016-12-15] MEDS: NSS + 20MEQ KCL 1000ML 1,000 ML IV SCH ×3 (06:17→22:48)
[2016-12-15 07:25] VITALS: BP 131/83; PULSE 66; TEMP 37.2; O2SAT 94
[2016-12-15 07:25] LABS: HEMATOCRIT 36.5 % (42-52); MEAN CELL VOLUME 97.9 fL (80-100); MEAN CORPUSCULAR HGB CONC 33.7 g/dl (32-36); MEAN PLATELET VOLUME 10.2 fL (7.4-10.4); PLATELET COUNT 164 K/uL (130-400); RED BLOOD COUNT 3.73 M/uL (4.7-6.1); WHITE BLOOD COUNT 5.16 K/uL (4.8-10.8)
[2016-12-15] MEDS: CIPROFLOXACIN 500 MG TAB PO SCH ×2 (07:58→20:56)
[2016-12-15] MEDS: ASPIRIN 81 MG ECTAB PO SCH (07:58)
[2016-12-15] MEDS: GABAPENTIN 100 MG CAP PO SCH ×3 (07:58→20:56)
[2016-12-15] MEDS: METRONIDAZOLE / NSS 500 MG in PREMIXED NSS 100 ML IV SCH (07:58)
[2016-12-15] MEDS: PANTOprazole SOD 40 MG TAB PO SCH (07:58)
[2016-12-15] MEDS: CEROVITE ADV FORMULA TAB PO SCH (07:58)
[2016-12-15 08:01] LABS: BUN/CREATININE RATIO 8.9 (10-20); CALCIUM 7.8 mg/dl (8.5-10.1); CREATININE 0.84 mg/dl (0.60-1.40); MAGNESIUM 2.2 mg/dl (1.8-2.4); POTASSIUM 4.2 mmol/L (3.5-5.1)
[2016-12-15 08:02] LABS: PHOSPHORUS 1.8 mg/dl (2.5-4.9)
[2016-12-15] MEDS ORDERED: SODIUM PHOSPHATE 3 MMOL/1 ML INFUSION IV STA (09:30)
[2016-12-15] MEDS ORDERED: SODIUM PHOSPHATE INJ 24 MMOL in SODIUM CHLORIDE 0.9% 500ML 500 ML IV SCH (09:45)
[2016-12-15] MEDS: KETOROLAC TROMETHAMINE 15 MG/ML VIAL IV PRN (13:57)
[2016-12-15 14:58] VITALS: BP 104/65; PULSE 62; TEMP 37.1; O2SAT 93
[2016-12-15 15:05] VITALS: BP 104/65; PULSE 62; TEMP 37.1; O2SAT 93
--- NOTE | 2016-12-15 17:38 | Progress Note ---
Internal Med Progress Note Date of Service: December 15, 2016. Provider Documentation: SUBJECTIVE: The patient was seen and examined Still has profuse diarrhea and abdominal pain No Nausea and or vomiting Still has diarrhea but otherwise much better OBJECTIVE: Vital Signs-as noted below Exam: General-Minimal distress at rest Eyes-Normal ENT-normal Neck-supple Lungs-Clear to auscultate bilaterally Heart-Regular Abdomen-Benign,tender lower quadrants ,no masses,bowel sound exaggerated Extremities-No edema Neuro-AAOx3 Lab data as noted below. ASSESSMENT & PLAN: Infective Colitis Likely secondary to Campylobacter Jejuni Clostridium difficile toxin -negative Receiving IV Cipro and Flagyl Changed to Oral Cipro 750 mg BID and continued IV Flagyl for now-discontinued Much better today except ongoing diarrhea Continue IVF and symptomatic treatment Likely home in AM Esophageal reflux. Continue with proton pump inhibitors. Hyperlipidemia. Hold his cholesterol medications for now. Generalized anxiety disorder. Does not take any medications for that. We may give occasional benzodiazepines if needed. Deep venous thrombosis prophylaxis with Lovenox. Code status. He will be full code. Likely discharge tomorrow Vital Signs: Date Time Temp Pulse Resp B/P Pulse Ox O2 Delivery O2 Flow Rate FiO2 12/15/16 16:15 Room Air 12/15/16 15:05 37.1 62 18 104/65 93 Room Air 12/15/16 14:58 37.1 62 18 104/65 93 Room Air 12/15/16 08:30 Room Air 12/15/16 07:25 37.2 66 20 131/83 94 Room Air 12/15/16 00:03 36.8 79 16 117/72 96 Room Air 12/15/16 00:00 Room Air 12/14/16 20:00 Room Air Lab Results: Results Past 24 Hours Test 12/15/16 07:08 Range/Units White Blood Count 5.16 4.8-10.8 K/uL Red Blood Count 3.73 4.7-6.1 M/uL Hemoglobin 12.3 14.0-18.0 g/dL Hematocrit 36.5 42-52 % Mean Corpuscular Volume 97.9 80-100 fL Mean Corpuscular Hemoglobin 33.0 25-34 pg Mean Corpuscular Hemoglobin Concent 33.7 32-36 g/dl RDW Standard Deviation 50.3 36.4-46.3 fL RDW Coefficient of Variation 14.0 11.5-14.5 % Platelet Count 164 130-400 K/uL Mean Platelet Volume 10.2 7.4-10.4 fL Sodium Level 144 136-145 mmol/L Potassium Level 4.2 3.5-5.1 mmol/L Chloride Level 113 98-107 mmol/L Carbon Dioxide Level 24 21-32 mmol/L Anion Gap 7.0 3-11 mmol/L Blood Urea Nitrogen 8 7-18 mg/dl Creatinine 0.84 0.60-1.40 mg/dl Est Creatinine Clear Calc Drug Dose 90.1 ml/min Estimated GFR () 108.0 Estimated GFR (Non- 93.2 BUN/Creatinine Ratio 8.9 10-20 Random Glucose 90 70-99 mg/dl Calcium Level 7.8 8.5-10.1 mg/dl Phosphorus Level 1.8 2.5-4.9 mg/dl Magnesium Level 2.2 1.8-2.4 mg/dl
[2016-12-15] MEDS: ENOXAPARIN 40 MG/0.4 ML SYR SQ SCH (20:56)
[2016-12-15 23:36] VITALS: BP 130/79; PULSE 78; TEMP 36.8; O2SAT 97
[2016-12-16] MEDS: NSS + 20MEQ KCL 1000ML 1,000 ML IV SCH (06:18)
[2016-12-16 06:32] LABS: BUN/CREATININE RATIO 11.6 (10-20); CALCIUM 7.8 mg/dl (8.5-10.1); CREATININE 0.96 mg/dl (0.60-1.40); MAGNESIUM 2.2 mg/dl (1.8-2.4); POTASSIUM 4.3 mmol/L (3.5-5.1)
[2016-12-16 06:39] LABS: PHOSPHORUS 2.7 mg/dl (2.5-4.9)
[2016-12-16 07:16] VITALS: BP 129/80; PULSE 68; TEMP 36.8; O2SAT 96
[2016-12-16] MEDS: CIPROFLOXACIN 500 MG TAB PO SCH (08:59)
[2016-12-16] MEDS: CEROVITE ADV FORMULA TAB PO SCH (08:59)
[2016-12-16] MEDS: ASPIRIN 81 MG ECTAB PO SCH (08:59)
[2016-12-16] MEDS: GABAPENTIN 100 MG CAP PO SCH (09:00)
[2016-12-16] MEDS: PANTOprazole SOD 40 MG TAB PO SCH (09:00)
--- NOTE | 2016-12-16 10:19 | Progress Note ---
Internal Med Progress Note Date of Service: December 16, 2016. Provider Documentation: SUBJECTIVE: The patient was seen and examined Diarrhea settled No Nausea and or vomiting Ready to go home OBJECTIVE: Vital Signs-as noted below Exam: General-Minimal distress at rest Eyes-Normal ENT-normal Neck-supple Lungs-Clear to auscultate bilaterally Heart-Regular Abdomen-Benign,tender lower quadrants ,no masses,bowel sound exaggerated Extremities-No edema Neuro-AAOx3 Lab data as noted below. ASSESSMENT & PLAN: Infective Colitis Likely secondary to Campylobacter Jejuni Clostridium difficile toxin -negative Receiving IV Cipro and Flagyl Changed to Oral Cipro 750 mg BID and continued IV Flagyl for now-discontinued Much better today except ongoing diarrhea-improved Continue IVF and symptomatic treatment Likely home in AM Continue Cipro for 2 more days Esophageal reflux. Continue with proton pump inhibitors. Hyperlipidemia. Hold his cholesterol medications for now. Generalized anxiety disorder. Does not take any medications for that. We may give occasional benzodiazepines if needed. Deep venous thrombosis prophylaxis with Lovenox. Code status. He will be full code. Discharge home today Vital Signs: Date Time Temp Pulse Resp B/P Pulse Ox O2 Delivery O2 Flow Rate FiO2 12/16/16 09:24 Room Air 12/16/16 07:16 36.8 68 20 129/80 96 Room Air 12/16/16 00:01 Room Air 12/15/16 23:36 36.8 78 18 130/79 97 Room Air 12/15/16 20:00 Room Air 12/15/16 16:15 Room Air 12/15/16 15:05 37.1 62 18 104/65 93 Room Air 12/15/16 14:58 37.1 62 18 104/65 93 Room Air Lab Results: Results Past 24 Hours Test 12/16/16 05:34 Range/Units Sodium Level 145 136-145 mmol/L Potassium Level 4.3 3.5-5.1 mmol/L Chloride Level 112 98-107 mmol/L Carbon Dioxide Level 27 21-32 mmol/L Anion Gap 6.0 3-11 mmol/L Blood Urea Nitrogen 11 7-18 mg/dl Creatinine 0.96 0.60-1.40 mg/dl Est Creatinine Clear Calc Drug Dose 78.8 ml/min Estimated GFR () 97.1 Estimated GFR (Non- 83.8 BUN/Creatinine Ratio 11.6 10-20 Random Glucose 101 70-99 mg/dl Calcium Level 7.8 8.5-10.1 mg/dl Phosphorus Level 2.7 2.5-4.9 mg/dl Magnesium Level 2.2 1.8-2.4 mg/dl
[2016-12-16] MEDS ORDERED: LCTX PO (10:24)
[2016-12-16] MEDS ORDERED: CPR500 PO (10:24)
--- NOTE | 2016-12-16 10:26 | Discharge Instructions ---
Discharge Instructions Date of Service December 16, 2016. Admission Reason for Admission: Acute Colitis Discharge Discharge Diagnosis / Problem: Campylobacter Jejuni Diarrhea with Colitis Discharge Goals Goal(s): Prevent Disease Progression Activity Recommendations Activity Limitations: resume your previous activity . Instructions / Follow-Up Instructions / Follow-Up Dr Zhang on 12/21/16 at 10:45 AM Current Hospital Diet Patient's current hospital diet: Low Fiber Diet Discharge Diet Recommended Diet: Regular Diet, Low Fiber Diet Pending Studies Studies pending at discharge: no Medical Emergencies . Who to Call and When: Medical Emergencies: If at any time you feel your situation is an emergency, please call 911 immediately. . Non-Emergent Contact Non-Emergency issues call your: Primary Care Provider . Past History Medical & Surgical History: (1) Acute colitis (2) Dehydration (3) Nausea, vomiting, and diarrhea . "Provider Documentation" section prepared by Adam Morin. . VTE Core Measure Inpt VTE Proph given/why not?: Enoxaparin (Lovenox)SQ
[2016-12-16 10:41] VITALS: BP 129/80; PULSE 68; TEMP 36.8; O2SAT 96
--- NOTE | 2016-12-16 18:18 | Discharge Summary ---
Discharge Summary Date of Service December 16, 2016. Discharge Summary Admission Date: December 13, 2016 at 13:10 Discharge Date: December 16, 2016 Discharge Disposition: Home Principal Diagnosis: Campylobacter Jejuni Diarrhea with Colitis Secondary Diagnoses/Problems: Please see H&P and Hospital Progress note Medication Reconciliation New Medications: Lactobacillus Acidophilus (Lactinex) Tab 2 TAB PO BID, #20 TAB Ciprofloxacin (Ciprofloxacin HCl) 500 Mg Tab 750 MG PO BID for 2 Days, #6 TAB Continued Medications: Aspirin Enteric Coated (Ecotrin Or Generic) 81 Mg Tab 81 MG PO DAILY, TAB Epinephrine (Epipen) 0.3 Mg/0.3 Ml Inj 0.3 MG IM UD, INJ Gabapentin (Neurontin) 100 Mg Cap 100 MG PO TID, CAP Multivitamins/Minerals (Mvi With Minerals) Tab 1 TABLET PO DAILY, TAB [place]-3 Fatty Acids (Fish Oil) 1 Cap Cap 1 CAP PO DAILY Omeprazole (Prilosec) 20 Mg Cap 20 MG PO DAILY Simvastatin (Simvastatin) 40 Mg Tab 40 MG PO HS Admission Information HPI (per Admitting provider): DATE OF ADMISSION: 12/13/2016 PRIMARY CARE PHYSICIAN: Dr. Nellie Zhang. CHIEF COMPLAINT: Nausea, vomiting, abdominal pain and fever since Wednesday last. HISTORY OF PRESENT COMPLAINT: He is a 61-year-old male with significant past medical history of esophageal reflux, tobacco use/disorder, hyperlipidemia and also history of meningioma. Apparently, has been complaining of right lower quadrant pain associated with nausea, vomiting, diarrhea and fever and chills since Wednesday last. Started to have generalized weakness, followed by fever and chills and diarrhea about 10-12 times a day. He has had abdominal pain with nausea and vomiting, quite a few times of vomiting as well. He is feeling weak and tired. He came to the ER with these symptoms and is noted to have a white count of 14.76 and a CAT scan of the abdomen did show ascending and transverse colitis. From that point, he was admitted to medical floor for continuation of care. PAST MEDICAL HISTORY: Significant for esophageal reflux, tobacco use/disorder, hyperlipidemia, meningioma and generalized anxiety disorder and benign prostatic hypertrophy. PAST SURGICAL HISTORY: Neck cyst removal, removal of tonsil as a child, inguinal hernia repair in 2011 and vasectomy. FAMILY HISTORY: Significant in brother, brother had unknown cancer. Maternal grandmother had diabetes. Mother has diabetes. Father has heart disease and also CHF. SOCIAL HISTORY: He is . He smokes about 7 cigars per day. He uses alcohol occasionally and he has been reasonably active. ALLERGIES: BEE STING. MEDICATIONS: He has been on EpiPen as an outpatient, simvastatin 40 mg at night, omega-3 fish oil 1 capsule daily, aspirin 81 mg a day, gabapentin 100 mg t.i.d., multivitamin 1 tablet daily, omeprazole 20 mg daily. REVIEW OF SYSTEMS: Other system review was unremarkable except mentioned in history of present complaint. NEUROLOGICAL: He does not have any numbness or tingling in the extremities. He does have headache, but no blurred vision, no speech problem. CARDIOVASCULAR: No chest pain, palpitations. No shortness of breath. RESPIRATORY: No cough or phlegm and no shortness of breath. GASTROINTESTINAL: Has abdominal pain, nausea, vomiting, and diarrhea. GENITOURINARY: No problem with urine. MUSCULOSKELETAL: No acute arthritis in any joint. GENERAL: He denies to have any rash and/or enlargement of lymph nodes. PHYSICAL EXAMINATION: GENERAL: On examination in the Emergency Room, he was not having any acute distress. VITAL SIGNS: Temperature 39.2, pulse is 84, blood pressure 124/71 and went down to 92/52, saturation 93% on room air. HEENT: Unremarkable. NECK: Supple. No JVD, no bruit. CHEST: Clear to auscultation bilaterally. HEART: S1, S2 regular. ABDOMEN: Soft, benign, tender in the right lower quadrant. No guarding or rigidity. Bowel sounds are accelerated. RECTAL: Deferred. EXTREMITIES: Negative. CENTRAL NERVOUS SYSTEM: Alert, awake, oriented x3. LABORATORY DATA: Noted today white count 14.76, H\\T\\H 14.2/42.4, platelet was 198. Sodium 139, potassium 3.8, chloride 106, carbon dioxide 24, BUN 13, creatinine 1.20. Random glucose 113. Lactic acid is 0.70. LFTs normal. Troponin normal. Coagulation panel is unremarkable. UA examination unremarkable. Chest x-ray, no acute cardiopulmonary findings. CT of the head, no acute intracranial findings, 1.5 x 1.4 cm heavily calcified mass centered into the anterior falx suggest falcine meningioma. CT of the abdomen and pelvis reported as mild pericolonic infiltration adjacent to the ascending colon and transverse colon with mild colonic wall thickening, finding reflux colitis, likely infectious in etiology. EKG was in sinus rhythm, rate of 105 per minute, normal axis and minor nonspecific ST-T wave changes. IMPRESSION AND PLAN: 1. Nonspecific colitis could be infection. The patient will be admitted to medical floor. He will be given IV fluid and antibiotic, a stool for Clostridium difficile toxin and cultures will be tested and he will be given symptomatic medications. Clear liquid to start with and advance diet as tolerated. 2. Esophageal reflux. Continue with proton pump inhibitors. 3. Hyperlipidemia. Hold his cholesterol medications for now. 4. Generalized anxiety disorder. Does not take any medications for that. We may give occasional diazepam if needed. 5. Deep venous thrombosis prophylaxis with Lovenox. 6. Code status. He will be full code. In my clinical judgment, the beneficiary meets criteria as per CMS for 2 midnight stay in the hospital. Hospital Course Infective Colitis Likely secondary to Campylobacter Jejuni Clostridium difficile toxin -negative Receiving IV Cipro and Flagyl Changed to Oral Cipro 750 mg BID and continued IV Flagyl for now-discontinued Much better today except ongoing diarrhea-improved Continue IVF and symptomatic treatment Likely home in AM Continue Cipro for 2 more days Esophageal reflux. Continue with proton pump inhibitors. Hyperlipidemia. Hold his cholesterol medications for now. Generalized anxiety disorder. Does not take any medications for that. We may give occasional benzodiazepines if needed. Deep venous thrombosis prophylaxis with Lovenox. Code status. He will be full code. Discharge home today Total time spent on discharge = 35 minutes This includes examination of the patient, discharge planning, medication reconciliation, and communication with other providers. Discharge Instructions Date of Service December 16, 2016. Admission Reason for Admission: Acute Colitis Discharge Discharge Diagnosis / Problem: Campylobacter Jejuni Diarrhea with Colitis Discharge Goals Goal(s): Prevent Disease Progression Activity Recommendations Activity Limitations: resume your previous activity . Instructions / Follow-Up Instructions / Follow-Up Dr Zhang on 12/21/16 at 10:45 AM Current Hospital Diet Patient's current hospital diet: Low Fiber Diet Discharge Diet Recommended Diet: Regular Diet, Low Fiber Diet Pending Studies Studies pending at discharge: no Medical Emergencies . Who to Call and When: Medical Emergencies: If at any time you feel your situation is an emergency, please call 911 immediately. . Non-Emergent Contact Non-Emergency issues call your: Primary Care Provider . Past History Medical & Surgical History: (1) Acute colitis (2) Dehydration (3) Nausea, vomiting, and diarrhea . "Provider Documentation" section prepared by Adam Morin. . VTE Core Measure Inpt VTE Proph given/why not?: Enoxaparin (Lovenox)SQ <Electronically signed by Adam Morin M.D.> Additional Copies To Nellie Zhang M.D.
== END 2016-12-16 11:30 | disposition home or self-care (01) | DRG 373 ==
LOC: ENRESERVDT → ENRESERVTM → C.EDB 08:48 → C.MED 13:10
PROVIDERS: ADMIT Internal Medicine; ATTEND Internal Medicine
DX: A04.5 Campylobacter enteritis (principal); E86.0 Dehydration; K21.9 Gastro-esophageal reflux disease without esophagitis; E78.5 Hyperlipidemia, unspecified; F17.290 Nicotine dependence, other tobacco product, uncomplicated; Z51.81 Encounter for therapeutic drug level monitoring; Z79.899 Other long term (current) drug therapy; Z79.82 Long term (current) use of aspirin; Z86.011 Personal history of benign neoplasm of the brain; Z83.3 Family history of diabetes mellitus; Z82.49 Family history of ischemic heart disease and other diseases of the circulatory system

== ENCOUNTER 2018-02-27 09:11 | Emergency (ER) | payer OTHER ==
[~2018-02-27] VITALS: Ht 172.7 cm; Wt 78.5 kg
[~2018-02-27 09:11] MED LIST changes: +ASPI-319 PO; -ASPI81TA21 PO; -BUPR-79 PO; -BUPRTAB51 PO; +CPR500 PO
[2018-02-27 09:14] VITALS: TEMP 36.5; Ht 172.7 cm; Wt 78.5 kg
[2018-02-27] MEDS ORDERED: CEFAZOLIN IV 2,000 MG in DEXTROSE 5% 50ML 50 ML IV STA (09:50)
[2018-02-27] MEDS ORDERED: MoRPHine SULFATE 4 MG/ML 1 ML CARP\\VIAL IV STA ×2 (09:50→11:30)
--- NOTE | 2018-02-27 10:08 | DIAGNOSTIC IMAGING REPORT ---
R HAND MIN 3 VIEWS ROUTINE CLINICAL HISTORY: Right hand injury. COMPARISON: None FINDINGS: Note is made of an acute comminuted mildly displaced fracture within the base and proximal shaft of the right fifth metacarpal. Equivocal fracture within the proximal shaft of the right fourth metacarpal is likely artifactual. 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 IMPRESSION: 1. Acute comminuted mildly displaced fracture within the base and proximal shaft of the right fifth metacarpal. 2. Equivocal nondisplaced right fifth metacarpal fracture which is likely artifactual. Electronically signed by: Wilfredo Gonzalez M.D. 02/27/2018 10:07 AM Dictated Date/Time: 02/27/2018 10:04 AM
[2018-02-27] MEDS ORDERED: LIDOCAINE 1% BUFFERED INJ 20 ML VIAL INFIL ONE (11:45)
[2018-02-27 12:26] VITALS: BP 122/95; PULSE 80; O2SAT 96
[2018-02-27] MEDS ORDERED: OXYC-57 PO (12:38)
[2018-02-27] MEDS ORDERED: CEPH500C PO (12:38)
--- NOTE | 2018-02-27 12:39 | EMERGENCY ROOM VISIT NOTE ---
History First contact with patient: 09:46 Chief Complaint: HAND PAIN/INJURY Stated Complaint: HAND INJURY History of Present Illness The patient is a 62 year old male who presents to the Emergency Room with complaints of an injury to his right hand. The patient states that he was using a saw and a piece of wood kicked back and struck him in the right hand. This caused an open wound to the right hand. He does not feel that it was impelled into his hand. This occurred about 45 minutes prior to arrival. The patient reports that his tetanus shot is up-to-date. He denies any other injuries. He denies any numbness or tingling distal to the injury. He does report discomfort with any movement or palpation of the area. Review of Systems As above otherwise negative for 10 systems Past Medical/Surgical History Medical Problems: (1) Acute colitis (2) Brain tumor (3) Hernia (4) Hornet/Wasp/Bee Sting (5) Tobacco Use Disorder Surgical Problems: (1) S/P vasectomy Family History Cancer Diabetes mellitus Heart disease Hypertension Social History Smoking Status: Current Every Day Smoker Alcohol Use: none Drug Use: none Marital Status: Housing Status: lives with family Occupation Status: employed Current/Historical Medications Scheduled Aspirin Enteric Coated (Ecotrin Or Generic), 81 MG PO DAILY Epinephrine (Epipen), 0.3 MG IM UD Multivitamins/Minerals (Mvi With Minerals), 1 TABLET PO DAILY [place]-3 Fatty Acids (Fish Oil), 1 CAP PO DAILY Omeprazole (Prilosec), 20 MG PO DAILY Simvastatin (Simvastatin), 40 MG PO HS Physical Exam Vital Signs Date Time Temp Pulse Resp B/P (MAP) Pulse Ox O2 Delivery O2 Flow Rate FiO2 02/27/18 12:26 80 20 122/95 96 Room Air 02/27/18 11:41 69 24 127/74 97 Room Air 02/27/18 10:19 78 24 96 Room Air 02/27/18 09:14 36.5 85 18 162/82 98 Room Air Physical Exam CONSTITUTIONAL/VITAL SIGNS: Reviewed / noted above. GENERAL: Non-toxic in appearance. INTEGUMENTARY: Warm, dry, and [place]. HEAD: Normocephalic. EYES: without scleral icterus or trauma. RESPIRATORY: Lungs clear and equal. CARDIOVASCULAR: Regular rate and rhythm. EXTREMITIES: Warm and well perfused. The right palm reveals a 3 cm laceration. There is tenderness surrounding the area. There is no obvious contamination. There is no significant bleeding. NEUROLOGICAL: Intact without focal deficits. PSYCHIATRIC: normal affect. MUSCULOSKELETAL: Normally developed with good muscle tone. TRIAGE NURSING DOCUMENTATION REVIEWED. Medical Decision & Procedures Medications Administered Medications (Trade) Dose Ordered Sig/Rosaura Route Start Time Stop Time Status Last Admin Dose Admin Morphine Sulfate (MoRPHine SULFATE INJ) 4 mg NOW STAT IV 02/27/18 09:50 02/27/18 09:54 DC 02/27/18 10:14 4 MG Cefazolin Sodium 2000 mg/Dextrose 65 ml @ 100 mls/hr ONE STAT IV 02/27/18 09:50 02/27/18 10:28 DC 02/27/18 10:14 100 MLS/HR Morphine Sulfate (MoRPHine SULFATE INJ) 4 mg NOW STAT IV 02/27/18 11:30 02/27/18 11:31 DC 02/27/18 11:38 4 MG ED Course IV morphine and IV Ancef have been ordered. Medical Decision Differential includes fracture, dislocation, neurovascular injury, foreign body The patient is a 62 year old male who presents to the Emergency Room with complaints of an injury to his right hand. The patient states that he was using a saw and a piece of wood kicked back and struck him in the right hand. This caused an open wound to the right hand. There is tenderness to palpation surrounding the area. There does not appear to be any swelling on the dorsal aspect of the right hand but there is a laceration noted on the mid palm region of the right hand that measures approximately 3 cm. X-ray reveals a nondisplaced fracture of the fifth metacarpal. The patient was told the results. I spoke with Dr. Crockett, who is on-call for orthopedics, he recommends irrigating out the wound and not closing it. Lidocaine was used to anesthetize the area. It was irrigated with a copious amount of saline. A Betadine prep was used. Sterile technique was used. The wound was explored and no clear foreign bodies were appreciated. On gross exam, it does not immediately appear to communicate with the fracture. Open fracture is definitely possible. There did not appear to be any significant contamination. He was treated with IV Ancef. He was also given IV morphine for pain. He will be discharged on Percocet and Keflex. Follow-up in 1-2 days with orthopedics. A bandage was placed over the wound as was a ulnar gutter splint. Medication Reconcilliation Current Medication List: was personally reviewed by me Blood Pressure Screening Patient's blood pressure: Elevated blood pressure Blood pressure disposition: Elevated BP felt to be situational Impression Primary Impression: Hand laceration Additional Impressions: Fractured hand Open fracture Departure Information Dispostion Home / Self-Care Prescriptions Oxycodone/Acetaminophen 5MG/325MG (PERCOCET 5MG/325MG) Tab 1 TAB PO Q6H Y for Pain, #20 TAB Prov: Mookie Almanza D.O. 02/27/18 Cephalexin Monohydrate (Keflex) 500 Mg Cap 500 MG PO QID, #28 CAP Prov: Mookie Almanza D.O. 02/27/18 Referrals Nellie Zhang M.D. (PCP) Jacques Crockett, DO Patient Instructions [facility] Additional Instructions Follow-up with Dr. Crockett or one of the orthopedists in his office. Call tomorrow morning for an appointment. Percocet as prescribed. No driving within 6 hours of use. Do not take additional Tylenol while taking Percocet. Keflex as prescribed. Leave bandage in place and splint in place until seen by orthopedics. They should see you in 1-2 days. Problem Qualifiers
== END 2018-02-27 12:45 | disposition home or self-care (01) ==
LOC: C.EDB 09:12 → C.EDA 12:45
DX: S61.411A Laceration without foreign body of right hand, initial encounter (principal); S62.91XA Unspecified fracture of right hand, initial encounter for closed fracture; W22.8XXA Striking against or struck by other objects, initial encounter; F17.200 Nicotine dependence, unspecified, uncomplicated; Z79.82 Long term (current) use of aspirin